=== PATIENT | female | born 1990 | race Caucasian/White ===

== ENCOUNTER 2021-02-25 19:25 | Emergency (ER) | payer SELFPAY ==
[~2021-02-25] VITALS: Ht 165.1 cm; Wt 97.5 kg
[2021-02-25 19:30] VITALS: BP 157/104
--- NOTE | 2021-02-25 19:39 | NUR ---
PATIENT AMBULATED TO THE BATHROOM FOR URINE COLLECTION
--- NOTE | 2021-02-25 19:44 | NUR ---
PT AMBULATED TO BED 08.
[2021-02-25] MEDS ORDERED: IBUP-2213 PO (20:08)
[2021-02-25] MEDS ORDERED: ATA25 PO (20:08)
--- NOTE | 2021-02-25 20:13 | NUR ---
Patient discharged with v/s stable. Written and verbal after care instructions given and explained. Patient alert, oriented and verbalized understanding of instructions. Ambulatory with steady gait. All questions addressed prior to discharge. ID band removed. Patient advised to follow up with PMD. Rx of ATARAX IBUPROFEN given. Patient educated on indication of medication including possible reaction and side effects. Opportunity to ask questions provided and answered.
[2021-02-25 20:21] VITALS: BP 132/72
== END 2021-02-25 20:13 | disposition home or self-care (01) ==
LOC: MED 19:25
DX: F41.9 Anxiety disorder, unspecified (principal); R07.89 Other chest pain; E06.9 Thyroiditis, unspecified
CPT/HCPCS: 93005; 99283